=== PATIENT | male | born 1970 | race Two or more races ===

== ENCOUNTER 2017-04-29 20:33 | Emergency (ER) | payer OTHER ==
[~2017-04-29] VITALS: Ht 188 cm; Wt 79.4 kg
[~2017-04-29 20:33] MED LIST: NKM; PERMETHRIN60 GM TOPIC
[2017-04-29] MEDS ORDERED: Cyclobenzaprine 10mg Tab ORAL ONE (21:15)
[2017-04-29] MEDS ORDERED: CYCLOBENZAPRINE10 MG ORAL (21:48)
[2017-04-29 21:55] VITALS: BP 112/72
[2017-04-29 22:42] VITALS: BP 118/70
--- NOTE | 2017-04-30 09:56 | Diagnostic Imaging Report ---
Indication: Neck pain. Technique: Continuous helical imaging of the cervical spine was obtained transaxially from the skull base to the upper thoracic spine. 2-D coronal and sagittal reformatted images were obtained. Total Dose length Product (DLP): [address] Dose Index Volume (CTDIvol): 10, 13 mGy Comparison: None Findings: There is no acute fracture identified. There is no prevertebral soft tissue swelling. There is no malalignment that is treatable to trauma. There is a kyphotic deformity of the mid cervical spine associated with the interbody fusion between C5-6 and C6-7 and loss of height with anterior wedging of the C5 vertebra. This is probably posttraumatic from an old injury. There is some probable effusion at least partially involving the left C5-6 facet at C6-7 facet. On the right side of the C5-6 facet is slightly subluxed. Impression: No acute fracture identified. Deformity of the mid cervical spine as described above probably on the basis of previous trauma. Complete interbody fusion at C5-6 and C6-7 are noted as well as kyphotic deformity. [[facility] has communicated the preliminary results to the Emergency Department. Their findings are largely concordant with this report. The CT scanner at [facility] is accredited by the [employer] and the scans are performed using dose optimization techniques as appropriate to a performed exam including Automatic Exposure control.
--- NOTE | 2017-04-30 14:31 | Emergency Room Report ---
History of Present Illness General Chief Complaint: Generalized Weakness Source: Patient Present Illness HPI Patient is a 46-year-old male presented after increased neck pain.. Patient reportedly had recently been seen by his doctor. He was noted to have pain to the back of his neck and had difficulty with range of motion. He denied recent trauma. Patient stated that he was having increased spasms to both sides of his neck. He denied any fever. He reports having prior history of pancreatic cancer. He denied any vomiting or diarrhea. he denied any severe headache. Allergies: Coded Allergies: No Known Allergies (Unverified , 07/31/16) Patient History Past Medical History: see triage record Reviewed Nursing Documentation: PMH: Agreed, PSxH: Agreed Nursing Documentation-PMH Past Medical History: No History, Except For Review of Systems All Other Systems: negative except mentioned in HPI Physical Exam Vital Signs Date Time Temp Pulse Resp B/P Pulse Ox O2 Delivery O2 Flow Rate FiO2 04/29/17 20:18 99.3 90 16 108/66 95 Room Air General Appearance: well appearing, no apparent distress, alert, GCS 15 Head: normocephalic, atraumatic ENT: hearing grossly normal, normal voice Neck: supple, limited range of motion, tender lateral Respiratory: no respiratory distress, speaking full sentences Gastrointestinal: normal inspection, non tender Musculoskeletal: normal inspection, no calf tenderness Neurologic: normal inspection, alert, oriented x3, normal gait Psychiatric: mood/affect normal Skin: no rash Medical Decision Making Diagnostic Impression: Primary Impression: Cervical spinal stenosis ER Course Patient presented for neck pain. Differential diagnosis included vertebral artery dissection, myocardial infarction, cervical fracture, arthritis, spondylolithises. Patient's benign exam and does not appear to require any laboratory testing at this time. A CT imaging of the neck was ordered due to the patient's symptoms and had prior history of malignancy. A CT imaging read by radiologist showed multilevel degenerative changes with ankle... of multiple levels. There is no fracture noted . The patient was given prescription for muscle relaxant. He was advised to follow up with primary care physician as needed. Last Vital Signs Date Time Temp Pulse Resp B/P Pulse Ox O2 Delivery O2 Flow Rate FiO2 04/29/17 22:44 99.3 04/29/17 22:42 85 16 118/70 95 Room Air Status: improved Disposition: HOME, SELF-CARE Condition: Stable Scripts Cyclobenzaprine Hcl* (FLEXERIL*) 10 Mg Tablet 10 MG ORAL THREE TIMES A DAY, #20 TAB Prov: Jacky Barry 04/29/17 Referrals: John ASHRAF,REFERRING (PCP) Patient Instructions: Cervical Sprain Jacky Barry Apr 30, 2017 14:31
== END 2017-04-29 22:44 | disposition home or self-care (01) ==
LOC: EDBD 20:33 → EMR 20:45
DX: M48.02 Spinal stenosis, cervical region (principal); Z85.07 Personal history of malignant neoplasm of pancreas
CPT/HCPCS: 72125; 99284

== ENCOUNTER 2017-06-02 11:50 | Emergency (ER) | payer OTHER ==
[~2017-06-02] VITALS: Ht 188 cm; Wt 77.1 kg
[~2017-06-02 11:50] MED LIST changes: +CYCLOBENZAPRINE10 MG ORAL
[2017-06-02] MEDS ORDERED: Norco 5mg/325mg tab ORAL ONE (12:15)
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
[2017-06-02 15:41] VITALS: BP 127/79
[2017-06-02] MEDS ORDERED: NORCO 5-325 TA1 EACH ORAL (15:42)
[2017-06-02] MEDS ORDERED: AMOXICILLIN500 MG ORAL (15:42)
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
--- NOTE | 2017-06-04 08:45 | Diagnostic Imaging Report ---
Indication: Back pain Technique: Continuous helical transaxial imaging of the lumbar spine was obtained from the lung bases to the pubic symphysis. No IV contrast was administered. Coronal 2-D reformats were also obtained. Study obtained in a Siemens sensation [address] Total Dose length Product (DLP): [address] Dose Index Volume (CTDIvol): 10.12, 0.25 mGy Comparison: None Findings: There is no evidence of an acute fracture or malalignment. Endplate spurs are noted involving the L3-4 L4-5 levels. There is narrowing of intervertebral discs at both of these levels as well. There is probable central stenosis as well in the lower lumbar spine. This may be further evaluated with MR as deemed necessary. Impression: Degenerative changes of the mid and lower lumbar spine as described above. MR may be helpful for further evaluation as warranted clinically. The CT scanner at [facility] is accredited by the [employer] and the scans are performed using dose optimization techniques as appropriate to a performed exam including Automatic Exposure control.
== END 2017-06-02 15:41 | disposition home or self-care (01) ==
LOC: EDBD 11:50 → EMR 12:38
DX: S02.651A Fracture of angle of right mandible, initial encounter for closed fracture (principal); R20.0 Anesthesia of skin; M16.0 Bilateral primary osteoarthritis of hip; S70.02XA Contusion of left hip, initial encounter; M48.06 Spinal stenosis, lumbar region; X58.XXXA Exposure to other specified factors, initial encounter; Y93.9 Activity, unspecified; Y92.9 Unspecified place or not applicable
CPT/HCPCS: 70486; 72131; 72192; 99284